=== PATIENT | female | born 1975 ===

== ENCOUNTER 2018-09-26 14:07 | Outpatient (CLI) | payer OTHER ==
[~2018-09-26] VITALS: Ht 165.1 cm; Wt 54.4 kg
[~2018-09-26 14:07] MED LIST: ALLEGRA ALLERG180 MG PO; GILTUSS TR TAB1 EACH PO; TESSALON PERLE100 MG; TESSALON PERLE100 MG PO
== END 2018-09-26 14:25 | disposition home or self-care (01) ==
LOC: OFIC 805 14:07
DX: R04.0 Epistaxis (principal); K14.8 Other diseases of tongue; R09.81 Nasal congestion